=== PATIENT | male | born 1955 | race African-American/Black ===

== ENCOUNTER 2022-05-27 04:43 | Emergency (ER) | payer OTHER, SELFPAY ==
[2022-05-27] VITALS (10 sets, daily range): BP systolic 135–151; BP diastolic 98–105; PULSE 86–101; RESP 11–17; TEMP 36.5; O2SAT 95–99
--- NOTE | ~2022-05-27 | XR_ITS ---
EXAMINATION: XR chest 1V portable INDICATION: Shortness of breath TECHNIQUE: Portable AP chest at 0542 hours COMPARISON: None available FINDINGS: The lungs are hyperinflated but free of acute opacities. No pleural effusion or pneumothora x. The cardiomediastinal silhouette is normal. IMPRESSION: 1. Hyperinflation without acute cardiopulmonary abnormality. Reviewed, dictated and finalized at location A.
--- NOTE | 2022-05-27 04:56 | ECG_ITS ---
Measurements Intervals [place] Rate: 85 P: 76 AR: 192 QRS: 80 QRSD: 83 T: 69 QT: 366 QTc: 436 Interpretive Statements SINUS RHYTHM NORMAL ELECTROCARDIOGRAM NO PREVIOUS ECG AVAILABLE FOR COMPARISON Electronically Signed On 05-27-2022 7:20:34 CDT by Rosendo Dwyer M.D.
--- NOTE | 2022-05-27 04:57 | ED.GENADULT ---
HPI - General Adult General Chief complaint: Shortness of Breath/Dyspnea Stated complaint: short of breath Time Seen by Provider: 05/27/22 04:49 History of Present Illness HPI narrative: Patient is a 66-year-old gentleman who presents the emergency department with chief complaint of shortness of breath. The patient reports he has history of COPD and normally wears 1 L nasal cannula oxygen whenever he is at rest and 2 L whenever he is ambulating. The patient states this evening he was with his family at a hotel and started having shortness of breath. EMS was called and the patient was having significant wheezing. Patient was given a nebulizer treatment by EMS and states he is starting to feel somewhat better. The patient denies fever denies chills states he had a little bit of tightness in his chest but that is normal whenever he has a flareup of his COPD patient states is been several months since the last time he was treated with steroids for COPD flare. Related Data Allergies Allergy/AdvReac Type Severity Reaction Status Date / Time No Known Allergies Allergy Verified 05/27/22 05:12 Review of Systems Review of Systems: A 10 system review of systems was completed on the patient and is negative except for what is stated in the HPI. Nursing and ancillary documentation was reviewed. Exam Narrative: GENERAL: Well-appearing, well-nourished, and in no acute distress. HEAD: Normocephalic, atraumatic. EYES: PERRLA and EOMI. ENT: Nares clear, no rhinorrhea or epistaxis. Mucous membranes moist. NECK: Supple. CHEST: Clear to auscultation. No respiratory distress. HEART: Regular rate and rhythm. No murmur heard. Normal peripheral pulses. ABDOMEN: Soft, nontender, nondistended, normal active bowel sounds. EXTREMITIES: Normal range of motion. No edema. SKIN: Warm, dry, no rash. NEURO: No focal deficits. Alert and oriented x3. PSYCH: Normal mood and affect. Course Vital Signs Vital signs: Vital Signs Pulse Rate 101 H 05/27/22 04:43 Temperature 36.5 C 05/27/22 04:44 Pulse Rate 97 05/27/22 06:01 Respiratory Rate 15 05/27/22 06:01 Blood Pressure 135/98 H 05/27/22 06:01 Pulse Oximetry 97 05/27/22 06:01 Oxygen Delivery Nasal Cannula 05/27/22 04:56 Oxygen Flow Rate 2 05/27/22 04:56 Medical Decision Making Vital Signs Vital Signs: Vital Signs Pulse Rate 101 H 05/27/22 04:43 Temperature 36.5 C 05/27/22 04:44 Pulse Rate 97 05/27/22 06:01 Respiratory Rate 15 05/27/22 06:01 Blood Pressure 135/98 H 05/27/22 06:01 Pulse Oximetry 97 05/27/22 06:01 Oxygen Delivery Nasal Cannula 05/27/22 04:56 Oxygen Flow Rate 2 05/27/22 04:56 Lab Data Result diagrams: 05/27/22 05:05 05/27/22 05:05 Labs: Lab Results 05/27/22 05/27/22 05/27/22 Range/Units 05:05 05:05 05:05 WBC 3.4 L (4.5-10.0) K/mm3 RBC 4.40 L (4.6-6.20) M/mm3 Hgb 11.3 L (14.0-18.0) g/dL Hct 36.6 L (42.0-52.0) % MCV 83.2 (80-100) fl MCH 25.7 L (26-34) pg MCHC 30.9 L (32-36) g/dl RDW 18.4 H (11.5-14.5) % Plt Count 275 (150-375) k/mm3 MPV 11.0 H (7.4-10.4) fl Immature Gran % (Auto) 0.3 (0-0.5) % Neut % (Auto) 46.3 (45.5-73.1) % Lymph % (Auto) 37.0 (18.3-44.2) % Avery % (Auto) 11.1 H (2.6-8.5) % Eos % (Auto) 4.4 (0-4.4) % Baso % (Auto) 0.9 (0.2-1.2) % Lymph # (Auto) 1.27 (0.9-3.2) K/mm3 Avery # (Auto) 0.4 (0.1-0.6) K/mm3 Eos # (Auto) 0.2 (0-0.3) K/mm3 Baso # (Auto) 0.0 (0.0-0.1) K/mm3 Abs Immat Gran (auto) 0.01 (0.00-0.031) K/mm3 Absolute Neuts (auto) 1.6 (1.3-6.7) K/mm3 Absolute Nucleated RBC 0.0 (0.0-0.012) K/mm3 Nucleated RBC % 0.0 (0.0-0.2) % Sodium 138 (137-145) mmol/L Potassium 4.5 (3.4-5.0) mmol/L Chloride 106 (98-107) mmol/L Carbon Dioxide 29 (22-30) mmol/L Anion Gap 3 L (8-16) mmol/L BUN 16 (9-20) mg/dL Creatinine
[2022-05-27 05:11] LABS: Basophils Percent Auto 0.9 % (0.2-1.2); Eosinophils Absolute Auto 0.2 K/mm3 (0-0.3); Eosinophils Percent Auto 4.4 % (0-4.4); Hematocrit 36.6 % (42.0-52.0); Hemoglobin 11.3 g/dL (14.0-18.0); Immature Granulocyte Absolute 0.01 K/mm3 (0.00-0.031); Immature Granulocyte Percent A 0.3 % (0-0.5); Lymphocytes Absolute Auto 1.27 K/mm3 (0.9-3.2); Mean Corpuscular HGB Conc 30.9 g/dl (32-36); Mean Corpuscular Hemoglobin 25.7 pg (26-34); Mean Corpuscular Volume 83.2 fl (80-100); Monocytes Absolute Auto 0.4 K/mm3 (0.1-0.6); Monocytes Percent Auto 11.1 % (2.6-8.5); Neutrophils Absolute Auto 1.6 K/mm3 (1.3-6.7); Neutrophils Percent Auto 46.3 % (45.5-73.1); Platelet Count Result 275 k/mm3 (150-375); Red Cell Distribution Width 18.4 % (11.5-14.5); White Blood Count 3.4 K/mm3 (4.5-10.0)
[2022-05-27] MEDS: methylPREDNISolone SOD SUCC 125 MG VIAL IV PUSH (05:13)
[2022-05-27 05:19] LABS: Lactic Acid Reflex 0.8 mmol/L (0.7-2.0)
[2022-05-27 05:20] LABS: Alanine Aminotransferase 19 U/L (6-50); Albumin Level 4.5 g/dL (3.5-5.1); Alkaline Phosphatase 48 U/L (38-126); Anion Gap 3 mmol/L (8-16); Aspartate Amino Transferase 33 U/L (17-59); Bilirubin,Total 0.2 mg/dL (0.2-1.3); Blood Urea Nitrogen 16 mg/dL (9-20); Carbon Dioxide 29 mmol/L (22-30); Chloride 106 mmol/L (98-107); Estimated CRCL calculation 61 ml/min; Estimated Glomerular Filt Rate > 60; Glucose 91 mg/dL (65-110); Magnesium 1.8 mg/dL (1.6-2.3); Potassium 4.5 mmol/L (3.4-5.0); Sodium 138 mmol/L (137-145)
[2022-05-27] MEDS: ALBUTEROL SULFATE NEB 2.5 MG/3 ML INH 5 MG INHALATION (05:21)
[2022-05-27] MEDS: IPRATROPIUM BR 0.02% INH SOLN 0.5 MG/2.5 ML VIAL INHALATION (05:21)
[2022-05-27 05:31] LABS: Troponin I < 0.012 ng/mL (0.000-0.034)
== END 2022-05-27 06:49 | disposition home or self-care (01) ==
LOC: ANHED 06:10
PROVIDERS: Emergency Provider Emergency Medicine; PCP Family Medicine
DX: J44.1 Chronic obstructive pulmonary disease with (acute) exacerbation (principal); Z99.81 Dependence on supplemental oxygen
CPT/HCPCS: 36415; 71045; 80053; 83605; 83735; 84484; 85025; 93005; 94640; 96374; 99284; J2930